=== PATIENT | female | born 1995 | race African-American/Black ===

== ENCOUNTER 2024-09-04 10:29 | Emergency (ER) | payer MEDICAID ==
[~2024-09-04] VITALS: Ht 160 cm; Wt 48.0 kg
[2024-09-04 11:00] VITALS: BP 118/73; PULSE 113; RESP 16; O2SAT 97
--- NOTE | 2024-09-04 11:28 | DVH ---
CLINICAL INDICATION: swelling/pain TECHNIQUE: XY R KNEE 3V XRAY Comparison: None FINDINGS/IMPRESSION: : There is no evidence of acute fracture or dislocation. Small to moderate knee joint effusion.
--- NOTE | 2024-09-04 12:35 | ED.PDOC ---
Musculoskeletal HPI Comments 28 year old w/ no pertinent medical hx presents for right knee pain. Onset was yesterday after brother pulled on her knee while horse playing. Unable to bear weight at this time. Pain worsens with ambulation and rated 10/10. No previous knee injuries Chief Complaint: Lower Extremity Time Seen by MD: 11:53 Primary Care Provider: none Reviewed Notes: Nurses Notes, Medications, Allergies Allergies: Coded Allergies: NO KNOWN ALLERGIES (Unverified , 04/13/16) Information Source: Patient Mode of Arrival: Wheelchair Past Medical History Surgical History: Denies all surgeries [employer] BU[employer]ER History: No Pertinent [employer] BU[employer]ER History Family History Family History: Unknown Social History Smoker: Cigarettes Alcohol: Denies ETOH Use Drugs: Denies Drug Use Lives In: Home All Other Systems: Reviewed and Negative (per hpi) Physical Exam General Appearance: No Apparent Distress, Normal HEENT: Normal ENT Inspection, Pharynx Normal, TMs Normal Neck: Full Range of Motion, Non-Tender, Normal, Normal Inspection Respiratory: Chest Non-Tender, Lungs Clear, No Accessory Muscle Use, No Respiratory Distress, Normal Breath Sounds Cardiovascular: No Edema, No JVD, No Murmur, No Gallop, Normal Peripheral Pulses, Regular Rate/Rhythm Breast Exam: Deferred Gastrointestinal: No Organomegaly, Non Tender, No Pulsatile Mass, Normal Bowel Sounds, Soft Genitalia: Deferred Pelvic: Deferred Rectal: Deferred Extremities: No calf tenderness, Normal capillary refill, Normal inspection, Normal range of motion, Non-tender, No pedal edema Musculoskeletal : Location: Right Extremity Location: Knee (no gross abnormality on inspection. able to move toes. pain with flexion/extension) Apperance: Normal Neurologic: Alert, No Motor Deficits, Normal Affect, Normal Mood, No Sensory Deficits Cerebellar Function: Normal Reflexes: Normal Skin: Dry, Normal Color, Warm Lymphatic: No Adenopathy Was a procedure done? Was a procedure done?: No Differential Diagnosis EXT Differential Diagnosis: Fracture, Sprain, Dislocation X-Ray, Labs, Meds, VS Vital Signs Date Time Temp Pulse Resp B/P (MAP) Pulse Ox O2 Delivery O2 Flow Rate FiO2 09/04/24 11:00 99.2 113 16 118/73 (88) 97 X-Ray, Labs, Meds, VS Comment X-ray of the knee X-ray interpreted by radiologist and reviewed by me Today symptoms are consistent with acute internal derangement of the left knee Prescribed NSAIDs for the management of acute knee pain. Recommend light walking under the sun for 30 minutes a day Avoiding running jogging high-impact activities Stretch as tolerated Ice 3x/day for 5 minutes Wear knee brace for stability as needed, elevate leg swelling aggravated On reevaluation, patient had symptomatic improvement. Patient is stable for discharge at this time. External notes reviewed. Test results and diagnostic imaging interpreted. All diagnostic findings, discharge care, education and instructions provided Follow-up with PCP in 2 to 3 days. Recommended she may benefit from an MRI Patient verbalized understanding and agreed to treatment plan Vital signs stable, afebrile, no acute distress noted Patient ambulatory with strong steady gait Advised to return precautions for any new or worsening symptoms, return to ER immediately for re-evaluation Patient is aware that the purpose of this visit was for an acute medical emergency requiring emergent stabilization. Chronic conditions, including malignancies have not been ruled out. Patient is instructed to follow up with PCP as directed and discharge instructions for continued care and workup. If unable to arrange follow-up, patient is to return to the emergency department for reassessment. Patient (parent or legal guardian if applicable) was given verbal and written discharge instructions and acknowledges understanding. Time of 1ST Reevaluation: 12:32 Reevaluation 1ST: Unchanged Patient Education/Counseling: Diagnosis, Treatment Family Education/Counseling: Diagnosis, Treatment Departure 1 Departure Time of Disposition: 12:36 Impression: Primary Impression: Internal derangement of knee joint Qualified Codes: M23.91 - Unspecified internal derangement of right knee Disposition: 01 HOME / SELF CARE / HOMELESS Condition: Stable e-Prescriptions Naproxen (Naproxen) 500 Mg Tab 500 MG PO BIDPC for 10 Days, #20 TAB 0 Refills Prov: AKIKO TAYLOR NP 09/04/24 Discharged With: Relative Critical Care Note Critical Care Time?: No Stability Stability form required: No Heart Score Heart Score: Heart Score Response (Comments) Value History N/A 0 EKG N/A 0 Age N/A 0 Risk Factors N/A 0 Troponin N/A 0 Total 0 AKIKO TAYLOR NP Sep 04, 2024 12:35
[2024-09-04] MEDS ORDERED: NAPR-746 PO (12:37)
[2024-09-04] MEDS: HYDROcodone-ACET 7.5/325MG TAB PO ONE (13:04)
== END 2024-09-04 13:05 | disposition home or self-care (01) ==
LOC: ER 10:29
DX: M23.91 Unspecified internal derangement of right knee (principal); F17.210 Nicotine dependence, cigarettes, uncomplicated; W18.39XA Other fall on same level, initial encounter; Y93.83 Activity, rough housing and horseplay; Y92.89 Other specified places as the place of occurrence of the external cause; Y99.8 Other external cause status
CPT/HCPCS: 73562